=== PATIENT | male | born 1935 | race Caucasian/White ===

== ENCOUNTER 2018-11-08 12:13 | Inpatient (IN) | payer OTHER ==
[~2018-11-08] VITALS: Ht 182.9 cm; Wt 104.8 kg
[2018-11-08] MEDS ORDERED: METHYLPREDNISOLONE SOD SUCC 125 MG/2 ML VIAL IV STA (12:16)
[2018-11-08] MEDS ORDERED: IPRATROPIUM BROMIDE (0.02%) 0.5MG/2.5ML NEB HHN STA (12:16)
[2018-11-08] MEDS ORDERED: ALBUTEROL (0.083%) 2.5MG/3ML NEB HHN STA (12:16)
[2018-11-08] MEDS ORDERED: MAGNESIUM 2 G PREMIX 50 ML IV STA (12:16)
[2018-11-08] MEDS ORDERED: FUROSEMIDE 20MG/2ML VIAL IVP ONE (12:30)
[2018-11-08 12:54] LABS: CHLORIDE 112 mEq/L (98-107)
[2018-11-08 12:57] LABS: BASOPHILS % 1.6 % (0.0-2.0); EOSINOPHILS % 0.8 % (0.0-5.0); HEMATOCRIT. 36.1 % (42.0-52.0); HEMOGLOBIN. 11.9 g/dL (14.0-18.0); LYMPHOCYTES % 45.1 % (20.0-50.0); MEAN CORPUSCULAR HEMOGLOBIN 28.9 pg (28.0-32.0); MEAN CORPUSCULAR VOLUME 87.6 fL (80.0-94.0); MEAN PLATELET VOLUME 9.9 fl (7.4-10.4); MONOCYTES % 5.6 % (2.0-8.0); NEUTROPHILS % 46.9 % (40.0-76.0); PLATELET 219 x1000/uL (130-400); RED BLOOD CELL COUNT 4.12 mill/uL (4.7-6.1); RED CELL DISTRIBUTION WIDTH 17.9 % (11.6-14.6)
[2018-11-08 13:34] LABS: BG BASE EXCESS -7.2 mmol/L (-2.0-2.0); BG BILEVEL POS AIRWAY PRESSURE 15/5; BG CARBOXYHEMOGLOBIN 0.3 % (0.5-1.5); BG DEOXYHEMOGLOBIN 2.2 % (0.0-5.0); BG HCO3 ACT 18.3 mmol/L (22.0-26.0); BG METHEMOGLOBIN 0.4 % (0.0-1.5); BG OXYGEN SATURATION 97.8 % (92.0-98.5); BG OXYHEMOGLOBIN 97.1 % (94.0-97.0); BG PCO2 36.8 mmHg (35.0-45.0); BG PH 7.314 (7.350-7.450); BG PO2 129.5 mmHg (75.0-100.0); BG SAMPLE SITE RIGHT RADIAL; BG TOTAL HEMOGLOBIN 12.1 g/dL (12.0-18.0); BG VENT MODE MASK - BIPAP; BG VENT RATE 15 set
[2018-11-08] MEDS ORDERED: LEVOFLOXACIN 500MG PREMIX 100 ML IV ONE (14:15)
[2018-11-08 15:08] LABS: INR 2.9; PROTHROMBIN TIME 28.9 sec (9.6-11.0)
[2018-11-08 15:29] LABS: CLARITY URINE CLEAR (CLEAR); COLOR URINE YELLOW (YELLOW); KETONES URINE NEGATIVE (NEGATIVE); LEUKOCYTE ESTERASE URINE NEGATIVE (NEGATIVE); NITRITE URINE NEGATIVE (NEGATIVE); OCCULT BLOOD URINE 2+ (NEGATIVE); PROTEIN URINE 1+ (NEGATIVE); SPECIFIC GRAVITY URINE 1.008 (1.005-1.030); UROBILINOGEN URINE 0.2 E.U./dL (0.2-1.0)
[2018-11-08] MEDS ORDERED: IPRATROPIUM/ALBUTEROL 0.5-3(2.5)MG/3ML NEB HHN PRN (16:45)
[2018-11-08] MEDS ORDERED: GUAIFENESIN 200MG/10ML SUGAR FREE UDC PO PRN (18:30)
[2018-11-08] MEDS ORDERED: LEVOFLOXACIN 500MG PREMIX 100 ML IV SCH (18:30)
[2018-11-08] MEDS ORDERED: ONDANSETRON HCL 4MG/2ML INJ IV PRN (18:30)
[2018-11-08] MEDS ORDERED: CLONIDINE 0.1MG TABLET PO PRN (18:30)
[2018-11-08] MEDS ORDERED: LORAZEPAM 2MG/ML CPJ IV PRN (18:30)
[2018-11-08] MEDS ORDERED: MORPHINE SULFATE 2 MG/ML CPJ (NOT FOR IM USE) IV PRN (18:30)
[2018-11-08] MEDS ORDERED: MAGNESIUM/ALUMINUM HYDROXIDE/SIMETHICONE 30ML UDC PO PRN (18:30)
[2018-11-08] MEDS ORDERED: NA PHOS,M-B/NA PHOS,DI-BA ENEMA 118ML PR PRN (18:30)
[2018-11-08] MEDS ORDERED: HYDROCODONE/ACETAMINOPHEN 5/325MG TABLET PO PRN (18:30)
[2018-11-08] MEDS ORDERED: DOCUSATE SODIUM 100MG CAPSULE PO PRN (18:30)
[2018-11-08] MEDS ORDERED: ACETAMINOPHEN 325MG TABLET PO PRN (18:30)
[2018-11-08 19:01] VITALS: BP 173/73
[2018-11-08 20:00] VITALS: BP 146/63
[2018-11-08] MEDS: IPRATROPIUM/ALBUTEROL 0.5-3(2.5)MG/3ML NEB HHN SCH (20:14)
[2018-11-08] MEDS ORDERED: DILTIAZEM HCL 5MG/ML 5ML VIAL IV NR (20:45)
[2018-11-08] MEDS ORDERED: IPRATROPIUM BROMIDE (0.02%) 0.5MG/2.5ML NEB HHN PRN (20:45)
[2018-11-08 21:00] VITALS: BP 140/102
[2018-11-08] MEDS ORDERED: FUROSEMIDE 40MG/4ML VIAL IVP NR (21:20)
[2018-11-08 21:41] VITALS: BP 142/72
[2018-11-08 22:04] VITALS: BP 146/70
[2018-11-08] MEDS ORDERED: PNEUMOCOCCAL 23-VAL P-SAC VAC 0.5 ML IM ONE (22:45)
[2018-11-09] VITALS (12 sets, daily range): BP systolic 113–152; BP diastolic 49–87
[2018-11-09 00:23] LABS: CREATINE KINASE MB FRACTION 28.6 ng/mL (0.5-3.6)
[2018-11-09 07:26] LABS: HEMATOCRIT. 36.5 % (42.0-52.0); MEAN CORPUSCULAR HEMOGLOBIN 28.8 pg (28.0-32.0); MEAN CORPUSCULAR VOLUME 87.7 fL (80.0-94.0); MEAN PLATELET VOLUME 9.1 fl (7.4-10.4); PLATELET 188 x1000/uL (130-400); RED BLOOD CELL COUNT 4.16 mill/uL (4.7-6.1); RED CELL DISTRIBUTION WIDTH 17.8 % (11.6-14.6)
[2018-11-09 07:33] LABS: CHLORIDE 110 mEq/L (98-107)
[2018-11-09 07:45] LABS: CREATINE KINASE 544 IU/L (39-308); HDL CHOLESTEROL 59 mg/dL (40-59); LDL CHOLESTEROL 86 mg/dL (5-100)
[2018-11-09 07:49] LABS: CREATINE KINASE MB FRACTION 45.3 ng/mL (0.5-3.6)
[2018-11-09] MEDS ORDERED: DIGOXIN 500MCG/2ML AMP IV NR ×2 (08:30→09:44)
[2018-11-09 08:37] LABS: BG BASE EXCESS -7.2 mmol/L (-2.0-2.0); BG BILEVEL POS AIRWAY PRESSURE 15/5; BG CARBOXYHEMOGLOBIN 0.2 % (0.5-1.5); BG DEOXYHEMOGLOBIN 2.9 % (0.0-5.0); BG FRACTION INSPIRED OXYGEN 60; BG HCO3 ACT 17.1 mmol/L (22.0-26.0); BG METHEMOGLOBIN 0.3 % (0.0-1.5); BG OXYGEN SATURATION 97.1 % (92.0-98.5); BG OXYHEMOGLOBIN 96.6 % (94.0-97.0); BG PCO2 30.8 mmHg (35.0-45.0); BG PH 7.362 (7.350-7.450); BG PO2 96.6 mmHg (75.0-100.0); BG SAMPLE SITE RIGHT BRACHIAL; BG TOTAL HEMOGLOBIN 11.9 g/dL (12.0-18.0); BG VENT MODE MASK - BIPAP; BG VENT RATE 16 set
[2018-11-09] MEDS: ASPIRIN 81MG TABLET PO SCH (08:37)
[2018-11-09] MEDS: IPRATROPIUM/ALBUTEROL 0.5-3(2.5)MG/3ML NEB HHN SCH ×4 (08:56→20:17)
[2018-11-09] MEDS ORDERED: FUROSEMIDE 40MG/4ML VIAL IV SCH ×3 (09:00→13:00)
[2018-11-09 09:10] LABS: INR 3.6; PROTHROMBIN TIME 35.5 sec (9.6-11.0)
[2018-11-09 10:26] LABS: T4 FREE 1.06 ng/dL (0.76-1.46)
[2018-11-09] MEDS: CLINDAMYCIN 600MG PREMIX 50 ML IV SCH ×2 (12:14→22:35)
[2018-11-09] MEDS ORDERED: LIDOCAINE HCL 1% 20ML VIAL (Pyxis) INJ ONE (14:37)
[2018-11-09] MEDS ORDERED: FENTANYL CITRATE/PF 50MCG/ML 2ML VIAL ONE (14:38)
[2018-11-09] MEDS ORDERED: MIDAZOLAM HCL 2 MG/2 ML VIAL ONE (14:38)
[2018-11-09] MEDS ORDERED: IODIXANOL 320MG/ML 100 ML BOTTLE IV ONE ×2 (14:39→15:04)
[2018-11-09 14:50] LABS: CREATINE KINASE MB FRACTION 35.8 ng/mL (0.5-3.6)
[2018-11-09] MEDS ORDERED: IOHEXOL-300 100 ML BOTTLE ONE (14:57)
[2018-11-09] MEDS ORDERED: LEVOFLOXACIN 250MG PREMIX 50 ML IV SCH (15:00)
[2018-11-09] MEDS ORDERED: HEPARIN SODIUM 1,000 UNIT/1ML VIAL IV ONE ×2 (15:00→15:16)
[2018-11-09] MEDS ORDERED: NICARDIPINE 100MCG/ML 10ML VIAL (CATH LAB) IV ONE (15:16)
[2018-11-09] MEDS ORDERED: NITROGLYCERIN 50MCG/ML 10ML VIAL (CATH LAB) IV ONE (15:16)
[2018-11-09] MEDS ORDERED: ADENOSINE 3 MG/ML 2ML VIAL IV ONE (15:24)
[2018-11-09] MEDS ORDERED: ATROPINE SULFATE 1MG/10ML SYR IV PRN (16:00)
[2018-11-09] MEDS ORDERED: MORPHINE SULFATE 2 MG/ML CPJ (NOT FOR IM USE) IV PRN (16:00)
[2018-11-09] MEDS ORDERED: ACETAMINOPHEN 325MG TABLET PO PRN (16:00)
[2018-11-09] MEDS ORDERED: ASPIRIN 325MG TABLET ONE (16:03)
[2018-11-09] MEDS ORDERED: CLOPIDOGREL 75MG TABLET ONE (16:03)
[2018-11-09] MEDS ORDERED: METOLAZONE 2.5MG TABLET PO SCH (17:00)
[2018-11-09 19:59] LABS: PLATELET ESTIMATE NORMAL
[2018-11-10] VITALS (13 sets, daily range): BP systolic 111–139; BP diastolic 56–80
[2018-11-10] MEDS: IPRATROPIUM/ALBUTEROL 0.5-3(2.5)MG/3ML NEB HHN SCH ×4 (01:26→20:26)
[2018-11-10] MEDS: CLINDAMYCIN 600MG PREMIX 50 ML IV SCH ×3 (03:17→17:09)
[2018-11-10 07:22] LABS: BASOPHILS % 0.5 % (0.0-2.0); EOSINOPHILS % 0.1 % (0.0-5.0); HEMATOCRIT. 26.8 % (42.0-52.0); HEMOGLOBIN. 8.9 g/dL (14.0-18.0); LYMPHOCYTES % 8.2 % (20.0-50.0); MEAN CORPUSCULAR HEMOGLOBIN 28.5 pg (28.0-32.0); MEAN CORPUSCULAR VOLUME 86.3 fL (80.0-94.0); MONOCYTES % 7.6 % (2.0-8.0); NEUTROPHILS % 83.6 % (40.0-76.0); PLATELET 135 x1000/uL (130-400); RED CELL DISTRIBUTION WIDTH 17.4 % (11.6-14.6)
[2018-11-10 07:48] LABS: BG BASE EXCESS -2.7 mmol/L (-2.0-2.0); BG CARBOXYHEMOGLOBIN 0.5 % (0.5-1.5); BG DEOXYHEMOGLOBIN 5.9 % (0.0-5.0); BG HCO3 ACT 21.5 mmol/L (22.0-26.0); BG OXYGEN SATURATION 94.1 % (92.0-98.5); BG OXYHEMOGLOBIN 93.6 % (94.0-97.0); BG PCO2 34.9 mmHg (35.0-45.0); BG PH 7.408 (7.350-7.450); BG PO2 75.8 mmHg (75.0-100.0); BG SAMPLE SITE RIGHT BRACHIAL; BG VENT MODE NASAL CANNULA
[2018-11-10 08:07] LABS: CHLORIDE 111 mEq/L (98-107)
[2018-11-10 08:14] LABS: PHOSPHORUS 3.4 mg/dL (2.5-4.9)
[2018-11-10] MEDS ORDERED: DEXTROSE 50% WATER 50ML SYRINGE IV PRN (08:15)
[2018-11-10 08:16] LABS: CREATINE KINASE 395 IU/L (39-308)
[2018-11-10 08:19] LABS: CREATINE KINASE MB FRACTION 15.1 ng/mL (0.5-3.6)
[2018-11-10] MEDS: INSULIN LISPRO 100 UNITS/ML SUBCUT SCH ×4 (09:19→21:10)
[2018-11-10] MEDS: CLOPIDOGREL 75MG TABLET PO SCH (09:28)
[2018-11-10] MEDS: CARVEDILOL 3.125 MG TABLET PO SCH (09:29)
[2018-11-10] MEDS: ASPIRIN 81MG TABLET PO SCH (09:29)
[2018-11-10] MEDS: AMLODIPINE 10MG TABLET PO SCH (09:29)
[2018-11-10] MEDS: SODIUM CHLORIDE 0.45% 1,000 ML IV SCH (09:30)
[2018-11-10] MEDS: FUROSEMIDE 40MG TABLET PO SCH (09:37)
[2018-11-10] MEDS ORDERED: INSULIN LISPRO 100 UNITS/ML SUBCUT SCH (12:20)
[2018-11-10] MEDS ORDERED: WARF2.5T83 MT (12:26)
[2018-11-10] MEDS ORDERED: HYDRALAZINE PO (12:26)
[2018-11-10] MEDS ORDERED: LISI40TA4 MT (12:26)
[2018-11-10] MEDS ORDERED: KLOR-CON PO (12:26)
[2018-11-10] MEDS ORDERED: INSULIN SQ (12:26)
[2018-11-10] MEDS ORDERED: ATOR-2 MT (12:26)
[2018-11-10] MEDS: BLOOD SUGAR DIAGNOSTIC STRIP TEST SCH ×3 (12:31→21:00)
[2018-11-10 12:49] LABS: CLARITY URINE CLEAR (CLEAR); COLOR URINE YELLOW (YELLOW); KETONES URINE NEGATIVE (NEGATIVE); LEUKOCYTE ESTERASE URINE NEGATIVE (NEGATIVE); NITRITE URINE NEGATIVE (NEGATIVE); OCCULT BLOOD URINE NEGATIVE (NEGATIVE); PROTEIN URINE NEGATIVE (NEGATIVE); SPECIFIC GRAVITY URINE 1.026 (1.005-1.030); UROBILINOGEN URINE 0.2 E.U./dL (0.2-1.0)
[2018-11-10 13:10] LABS: SODIUM URINE RANDOM 66 mEq/L
[2018-11-10 16:17] LABS: HEMATOCRIT 28.2 % (42.0-52.0); HEMOGLOBIN 9.2 g/dL (14.0-18.0); MEAN CORPUSCULAR HEMOGLOBIN 28.6 pg (28.0-32.0); MEAN CORPUSCULAR VOLUME 87.7 fL (80.0-94.0); PLATELET 130 x1000/uL (130-400); RED BLOOD CELL COUNT 3.22 mill/uL (4.7-6.1)
[2018-11-10 16:29] LABS: PROTHROMBIN TIME 46.3 sec (9.6-11.0)
[2018-11-10 17:11] LABS: INR 4.8
[2018-11-10] MEDS ORDERED: PHYTONADIONE 10MG/ML AMP SUBCUT NR (18:13)
[2018-11-10] MEDS: ATORVASTATIN CALCIUM 40MG TABLET PO SCH (21:09)
[2018-11-11] VITALS (12 sets, daily range): BP systolic 105–148; BP diastolic 51–90
[2018-11-11] MEDS: CLINDAMYCIN 600MG PREMIX 50 ML IV SCH ×3 (01:16→19:02)
[2018-11-11] MEDS: IPRATROPIUM/ALBUTEROL 0.5-3(2.5)MG/3ML NEB HHN SCH ×4 (02:18→21:03)
[2018-11-11] MEDS: SODIUM CHLORIDE 0.45% 1,000 ML IV SCH (06:04)
[2018-11-11 06:07] LABS: BASOPHILS % 0.4 % (0.0-2.0); EOSINOPHILS % 0.6 % (0.0-5.0); HEMATOCRIT. 25.7 % (42.0-52.0); HEMOGLOBIN. 8.7 g/dL (14.0-18.0); LYMPHOCYTES % 9.3 % (20.0-50.0); MEAN CORPUSCULAR HEMOGLOBIN 29.3 pg (28.0-32.0); MEAN CORPUSCULAR VOLUME 86.7 fL (80.0-94.0); MEAN PLATELET VOLUME 9.3 fl (7.4-10.4); MONOCYTES % 7.8 % (2.0-8.0); NEUTROPHILS % 81.9 % (40.0-76.0); PLATELET 139 x1000/uL (130-400); RED BLOOD CELL COUNT 2.96 mill/uL (4.7-6.1); RED CELL DISTRIBUTION WIDTH 17.2 % (11.6-14.6)
[2018-11-11 06:41] LABS: PHOSPHORUS 3.4 mg/dL (2.5-4.9)
[2018-11-11] MEDS: BLOOD SUGAR DIAGNOSTIC STRIP TEST SCH ×4 (06:50→21:00)
[2018-11-11] MEDS ORDERED: SODIUM CHLORIDE 0.9% 1,000 ML IV SCH (09:00)
[2018-11-11] MEDS: FUROSEMIDE 40MG TABLET PO SCH (09:11)
[2018-11-11] MEDS: CARVEDILOL 3.125 MG TABLET PO SCH (09:11)
[2018-11-11] MEDS: ASPIRIN 81MG TABLET PO SCH (09:11)
[2018-11-11] MEDS: AMLODIPINE 10MG TABLET PO SCH (09:11)
[2018-11-11] MEDS: CLOPIDOGREL 75MG TABLET PO SCH (09:11)
[2018-11-11] MEDS: INSULIN LISPRO 100 UNITS/ML SUBCUT SCH ×4 (09:56→23:04)
[2018-11-11 12:06] LABS: HEMATOCRIT. 24.8 % (42.0-52.0); HEMOGLOBIN. 8.2 g/dL (14.0-18.0); MEAN CORPUSCULAR HEMOGLOBIN 28.6 pg (28.0-32.0); MEAN CORPUSCULAR VOLUME 86.3 fL (80.0-94.0); PLATELET 131 x1000/uL (130-400); RED BLOOD CELL COUNT 2.87 mill/uL (4.7-6.1); RED CELL DISTRIBUTION WIDTH 17.6 % (11.6-14.6)
[2018-11-11 12:13] LABS: CHLORIDE 109 mEq/L (98-107); PROTHROMBIN TIME 29.4 sec (9.6-11.0)
[2018-11-11 12:22] LABS: PHOSPHORUS 3.9 mg/dL (2.5-4.9)
[2018-11-11 13:21] LABS: PLATELET ESTIMATE NORMAL
[2018-11-11 19:14] LABS: SODIUM URINE RANDOM 75 mEq/L
[2018-11-11] MEDS: ATORVASTATIN CALCIUM 40MG TABLET PO SCH (22:16)
[2018-11-12] VITALS (11 sets, daily range): BP systolic 104–135; BP diastolic 56–86
[2018-11-12] MEDS: IPRATROPIUM/ALBUTEROL 0.5-3(2.5)MG/3ML NEB HHN SCH ×3 (01:00→14:02)
[2018-11-12] MEDS: BLOOD SUGAR DIAGNOSTIC STRIP TEST SCH ×3 (06:27→16:07)
[2018-11-12] MEDS: CLINDAMYCIN 600MG PREMIX 50 ML IV SCH ×3 (06:32→17:14)
[2018-11-12] MEDS: INSULIN LISPRO 100 UNITS/ML SUBCUT SCH ×3 (11:11→17:14)
[2018-11-12] MEDS: CLOPIDOGREL 75MG TABLET PO SCH (11:11)
[2018-11-12] MEDS: CARVEDILOL 3.125 MG TABLET PO SCH (11:11)
[2018-11-12] MEDS: FUROSEMIDE 40MG TABLET PO SCH (11:12)
[2018-11-12] MEDS: AMLODIPINE 10MG TABLET PO SCH (11:12)
[2018-11-12] MEDS: ASPIRIN 81MG TABLET PO SCH (11:12)
[2018-11-12 12:39] LABS: BASOPHILS % 0.5 % (0.0-2.0); EOSINOPHILS % 1.5 % (0.0-5.0); HEMATOCRIT. 24.7 % (42.0-52.0); HEMOGLOBIN. 8.3 g/dL (14.0-18.0); LYMPHOCYTES % 7.7 % (20.0-50.0); MEAN CORPUSCULAR HEMOGLOBIN 29.4 pg (28.0-32.0); MEAN CORPUSCULAR VOLUME 87.2 fL (80.0-94.0); MEAN PLATELET VOLUME 9.1 fl (7.4-10.4); MONOCYTES % 8.7 % (2.0-8.0); NEUTROPHILS % 81.6 % (40.0-76.0); PLATELET 144 x1000/uL (130-400); RED BLOOD CELL COUNT 2.84 mill/uL (4.7-6.1); RED CELL DISTRIBUTION WIDTH 16.9 % (11.6-14.6)
[2018-11-12 12:47] LABS: INR 1.6; PROTHROMBIN TIME 16.4 sec (9.6-11.0)
[2018-11-15 10:11] LABS: MICROALBUMIN 24 HR URINE 54.1 mg/day (<30.0); MICROALBUMIN URINE 63.7 ug/mL (Not Estab.)
== END 2018-11-12 20:00 | disposition short-term general hospital (02) | DRG 246 ==
LOC: ER 14:02 → 5EST 14:58 → EDBEDREQ 15:03 → EDBEDREQTM 15:03 → ENRESERV 17:53 → 3WST 11-09 16:45
PROVIDERS: ADMIT Hospitalist; ATTEND Hospitalist
PROC: 5A09357 Assistance with Respiratory Ventilation, Less than 24 Consecutive Hours, Continuous Positive Airway Pressure (ICD-10-PCS; 2018-11-08)
PROC: 027034Z Dilation of Coronary Artery, One Artery with Drug-eluting Intraluminal Device, Percutaneous Approach (ICD-10-PCS; principal; 2018-11-09)
PROC: X2C0361 Extirpation of Matter from Coronary Artery, One Artery using Orbital Atherectomy Technology, Percutaneous Approach, New Technology Group 1 (ICD-10-PCS; 2018-11-09)
PROC: 4A023N7 Measurement of Cardiac Sampling and Pressure, Left Heart, Percutaneous Approach (ICD-10-PCS; 2018-11-09)
PROC: B2111ZZ Fluoroscopy of Multiple Coronary Arteries using Low Osmolar Contrast (ICD-10-PCS; 2018-11-09)
PROC: B2151ZZ Fluoroscopy of Left Heart using Low Osmolar Contrast (ICD-10-PCS; 2018-11-09)
PROC: 5A09357 Assistance with Respiratory Ventilation, Less than 24 Consecutive Hours, Continuous Positive Airway Pressure (ICD-10-PCS; 2018-11-09)
DX: I21.3 ST elevation (STEMI) myocardial infarction of unspecified site (principal); I50.43 Acute on chronic combined systolic (congestive) and diastolic (congestive) heart failure; J96.01 Acute respiratory failure with hypoxia; N17.0 Acute kidney failure with tubular necrosis; E87.2 Acidosis; I13.0 Hypertensive heart and chronic kidney disease with heart failure and stage 1 through stage 4 chronic kidney disease, or unspecified chronic kidney disease; D68.9 Coagulation defect, unspecified; N39.0 Urinary tract infection, site not specified; N18.9 Chronic kidney disease, unspecified; I48.0 Paroxysmal atrial fibrillation; E11.22 Type 2 diabetes mellitus with diabetic chronic kidney disease; E78.5 Hyperlipidemia, unspecified; J44.9 Chronic obstructive pulmonary disease, unspecified; I25.110 Atherosclerotic heart disease of native coronary artery with unstable angina pectoris; D64.9 Anemia, unspecified; I25.5 Ischemic cardiomyopathy; B95.5 Unspecified streptococcus as the cause of diseases classified elsewhere; Z88.0 Allergy status to penicillin; Z87.891 Personal history of nicotine dependence; Z79.01 Long term (current) use of anticoagulants; Z88.8 Allergy status to other drugs, medicaments and biological substances
CPT/HCPCS: 36415; 36600; 71045; 76770; 80048; 80061; 82043; 82375; 82550; 82553; 82805; 82962; 83036; 83605; 83735; 83880; 83935; 84100; 84145; 84156; 84300; 84439; 84443; 84484; 85027; 85347; 85379; 87077; 87186; 90732; 92933; 93005; 93306; 93458; 93970; 94640; 94660; 96361; 96365; 96367; 97161; 99291; C1725; C1769; C1874; C1887; C1893; J0153; J1160; J1644; J1815; J1940; J1956; J2060; J2250; J2930; J3010; J3430; J3475; J3490; J7611; J7620; Q9967

== ENCOUNTER 2019-06-21 10:23 | Inpatient (IN) | payer OTHER ==
[~2019-06-21] VITALS: Ht 172.7 cm; Wt 99.8 kg
[~2019-06-21 10:23] MED LIST: ATOR-2 MT; HYDRALAZINE PO; INSULIN SQ; KLOR-CON PO; LISI40TA4 MT; WARF2.5T83 MT
[2019-06-21] MEDS ORDERED: IPRATROPIUM BROMIDE (0.02%) 0.5MG/2.5ML NEB HHN STA (10:29)
[2019-06-21] MEDS ORDERED: METHYLPREDNISOLONE SOD SUCC 125 MG/2 ML VIAL IV STA (10:29)
[2019-06-21] MEDS ORDERED: ALBUTEROL (0.083%) 2.5MG/3ML NEB HHN STA (10:29)
[2019-06-21 10:53] LABS: EOSINOPHILS % 1.3 % (0.0-5.0); HEMATOCRIT. 32.5 % (42.0-52.0); HEMOGLOBIN. 10.6 g/dL (14.0-18.0); LYMPHOCYTES % 18.7 % (20.0-50.0); MEAN CORPUSCULAR HEMOGLOBIN 28.7 pg (28.0-32.0); MEAN CORPUSCULAR VOLUME 87.7 fL (80.0-94.0); MEAN PLATELET VOLUME 9.3 fl (7.4-10.4); PLATELET 145 x1000/uL (130-400); RED CELL DISTRIBUTION WIDTH 18.9 % (11.6-14.6)
[2019-06-21 10:54] LABS: CHLORIDE 108 mEq/L (98-107)
[2019-06-21 10:55] LABS: INR 2.4; PROTHROMBIN TIME 25.9 sec (9.6-11.0)
[2019-06-21 11:11] LABS: T4 FREE 1.23 ng/dL (0.76-1.46)
[2019-06-21] MEDS ORDERED: FUROSEMIDE 40MG/4ML VIAL IVP ONE (11:15)
[2019-06-21] MEDS ORDERED: NITROGLYCERIN OINT 1GM/INCH UDPKT TD ONE (11:15)
[2019-06-21 11:23] LABS: BG BASE EXCESS -2.9 mmol/L (-2.0-2.0); BG BILEVEL POS AIRWAY PRESSURE 15/5; BG CARBOXYHEMOGLOBIN 0.3 % (0.5-1.5); BG DEOXYHEMOGLOBIN 0.8 % (0.0-5.0); BG FRACTION INSPIRED OXYGEN 40; BG METHEMOGLOBIN 0.2 % (0.0-1.5); BG OXYGEN SATURATION 99.2 % (92.0-98.5); BG OXYHEMOGLOBIN 98.7 % (94.0-97.0); BG PCO2 38.6 mmHg (35.0-45.0); BG PH 7.374 (7.350-7.450); BG PO2 248.3 mmHg (75.0-100.0); BG SAMPLE SITE RIGHT BRACHIAL; BG TOTAL HEMOGLOBIN 10.5 g/dL (12.0-18.0); BG VENT MODE MASK - BIPAP; BG VENT RATE 14 set
[2019-06-21 12:53] LABS: CLARITY URINE CLEAR (CLEAR); COLOR URINE YELLOW (YELLOW); KETONES URINE NEGATIVE (NEGATIVE); LEUKOCYTE ESTERASE URINE NEGATIVE (NEGATIVE); NITRITE URINE NEGATIVE (NEGATIVE); OCCULT BLOOD URINE NEGATIVE (NEGATIVE); PROTEIN URINE 2+ (NEGATIVE); UROBILINOGEN URINE 0.2 E.U./dL (0.2-1.0)
[2019-06-21] MEDS ORDERED: AMLODIPINE 5MG TABLET PO NR (13:30)
[2019-06-21] MEDS ORDERED: ONDANSETRON HCL 4MG/2ML INJ IV PRN (14:00)
[2019-06-21] MEDS ORDERED: MAGNESIUM/ALUMINUM HYDROXIDE/SIMETHICONE 30ML UDC PO PRN (14:00)
[2019-06-21] MEDS ORDERED: IPRATROPIUM/ALBUTEROL 0.5-3(2.5)MG/3ML NEB NEB PRN (14:00)
[2019-06-21] MEDS ORDERED: DEXTROSE 50% WATER 50ML SYRINGE IV PRN (14:00)
[2019-06-21] MEDS ORDERED: NITROGLYCERIN 0.4MG TABLET SL SL PRN (14:00)
[2019-06-21] MEDS ORDERED: ACETAMINOPHEN 325MG TABLET PO PRN (14:00)
[2019-06-21] MEDS ORDERED: CLONIDINE 0.1MG TABLET PO PRN (14:00)
[2019-06-21] MEDS ORDERED: ZOLPIDEM TARTRATE 5MG TABLET PO PRN (14:00)
[2019-06-21] MEDS ORDERED: LORAZEPAM 0.5MG TABLET PO PRN (14:00)
[2019-06-21] MEDS ORDERED: METOLAZONE 10MG TABLET PO NR (14:00)
[2019-06-21] MEDS ORDERED: DOCUSATE SODIUM 100MG CAPSULE PO PRN (14:00)
[2019-06-21] MEDS ORDERED: TRAMADOL 50MG TABLET PO PRN (14:00)
[2019-06-21] MEDS ORDERED: GUAIFENESIN 200MG/10ML SUGAR FREE UDC PO PRN (14:00)
[2019-06-21 18:25] LABS: CREATINE KINASE MB FRACTION 2.2 ng/mL (0.5-3.6)
[2019-06-21] MEDS: BLOOD SUGAR DIAGNOSTIC STRIP TEST SCH (19:56)
[2019-06-21] MEDS: INSULIN LISPRO 100 UNITS/ML SUBCUT SCH (19:57)
[2019-06-21] MEDS: FUROSEMIDE 40MG/4ML VIAL IVP SCH (21:26)
[2019-06-21] MEDS ORDERED: INSULIN GLARGINE UD 100 UNITS/ML SYR SUBCUT SCH (22:00)
[2019-06-22] VITALS (38 sets, daily range): BP systolic 94–194; BP diastolic 43–151
[2019-06-22] MEDS ORDERED: HYDRALAZINE HCL 50MG TABLET PO SCH (06:00)
[2019-06-22] MEDS: NITROGLYCERIN OINT 1GM/INCH UDPKT TD SCH ×3 (06:03→22:00)
[2019-06-22] MEDS: FUROSEMIDE 40MG/4ML VIAL IVP SCH ×2 (06:03→17:19)
[2019-06-22] MEDS: BLOOD SUGAR DIAGNOSTIC STRIP TEST SCH ×4 (06:06→21:00)
[2019-06-22 06:07] LABS: HEMATOCRIT. 29.7 % (42.0-52.0); HEMOGLOBIN. 9.9 g/dL (14.0-18.0); MEAN CORPUSCULAR HEMOGLOBIN 28.8 pg (28.0-32.0); MEAN CORPUSCULAR VOLUME 86.7 fL (80.0-94.0); MEAN PLATELET VOLUME 9.7 fl (7.4-10.4); PLATELET 124 x1000/uL (130-400); RED BLOOD CELL COUNT 3.43 mill/uL (4.7-6.1); RED CELL DISTRIBUTION WIDTH 18.7 % (11.6-14.6)
[2019-06-22 06:20] LABS: CREATINE KINASE MB FRACTION 2.1 ng/mL (0.5-3.6)
[2019-06-22] MEDS: INSULIN LISPRO 100 UNITS/ML SUBCUT SCH ×4 (06:24→21:32)
[2019-06-22] MEDS ORDERED: FUROSEMIDE 40MG/4ML VIAL IVP SCH (09:00)
[2019-06-22] MEDS ORDERED: AMLODIPINE 5MG TABLET PO SCH (09:00)
[2019-06-22] MEDS: LISINOPRIL 10MG TABLET PO SCH ×2 (09:07→21:30)
[2019-06-22] MEDS: SPIRONOLACTONE 25MG TABLET PO SCH ×2 (09:08→21:30)
[2019-06-22] MEDS: FAMOTIDINE 20MG TABLET PO SCH (09:08)
[2019-06-22] MEDS: ASPIRIN 325MG EC TABLET PO SCH (09:08)
[2019-06-22 09:51] LABS: INR 2.9; PROTHROMBIN TIME 30.3 sec (9.6-11.0)
[2019-06-22 10:40] LABS: PLATELET ESTIMATE NORMAL
[2019-06-22 12:36] LABS: *BARBITURATES SCREEN URINE NEGATIVE (NEGATIVE); *BENZODIAZEPINES SCREEN URINE NEGATIVE (NEGATIVE); *COCAINE SCREEN URINE NEGATIVE (NEGATIVE)
[2019-06-22 12:37] LABS: CANNABINOID URINE SCREEN NEGATIVE (NEGATIVE); METHADONE URINE SCREEN NEGATIVE (NEGATIVE); OPIATES URINE SCREEN NEGATIVE (NEGATIVE); PHENCYCLIDINE URINE SCREEN NEGATIVE (NEGATIVE)
[2019-06-22 12:45] LABS: *AMPHETAMINES SCREEN URINE NEGATIVE (NEGATIVE)
[2019-06-22] MEDS: HYDRALAZINE HCL 100MG TABLET PO SCH ×2 (13:17→21:44)
[2019-06-22] MEDS: LEVOTHYROXINE SODIUM 50MCG TABLET PO SCH (13:32)
[2019-06-22] MEDS ORDERED: ATROPINE SULFATE 1MG/ML VIAL IV PRN (16:00)
[2019-06-22] MEDS ORDERED: INSULIN GLARGINE UD 100 UNITS/ML SYR SUBCUT SCH (22:00)
[2019-06-22] MEDS ORDERED: HYDRALAZINE 20MG/ML VIAL IV PRN (23:15)
[2019-06-22] MEDS ORDERED: HYDRALAZINE HCL 10MG TABLET PO NR (23:15)
[2019-06-23] VITALS (26 sets, daily range): BP systolic 126–174; BP diastolic 50–85
[2019-06-23 05:24] LABS: BASOPHILS % 0.5 % (0.0-2.0); EOSINOPHILS % 0.2 % (0.0-5.0); HEMATOCRIT. 30.4 % (42.0-52.0); HEMOGLOBIN. 10.2 g/dL (14.0-18.0); LYMPHOCYTES % 13.4 % (20.0-50.0); MEAN CORPUSCULAR HEMOGLOBIN 28.9 pg (28.0-32.0); MEAN CORPUSCULAR VOLUME 86.3 fL (80.0-94.0); MEAN PLATELET VOLUME 9.4 fl (7.4-10.4); MONOCYTES % 9.1 % (2.0-8.0); NEUTROPHILS % 76.8 % (40.0-76.0); PLATELET 131 x1000/uL (130-400); RED BLOOD CELL COUNT 3.52 mill/uL (4.7-6.1)
[2019-06-23 05:34] LABS: INR 3.3; PROTHROMBIN TIME 34.4 sec (9.6-11.0)
[2019-06-23] MEDS: FUROSEMIDE 40MG/4ML VIAL IVP SCH ×2 (06:10→17:38)
[2019-06-23] MEDS: HYDRALAZINE HCL 100MG TABLET PO SCH ×2 (06:11→14:16)
[2019-06-23] MEDS: LEVOTHYROXINE SODIUM 50MCG TABLET PO SCH (06:11)
[2019-06-23] MEDS: NITROGLYCERIN OINT 1GM/INCH UDPKT TD SCH ×2 (06:11→14:17)
[2019-06-23] MEDS: BLOOD SUGAR DIAGNOSTIC STRIP TEST SCH ×3 (06:11→16:47)
[2019-06-23] MEDS: INSULIN LISPRO 100 UNITS/ML SUBCUT SCH ×3 (06:12→16:47)
[2019-06-23] MEDS ORDERED: TERAZOSIN HCL 5MG CAPSULE PO SCH (09:00)
[2019-06-23] MEDS: ASPIRIN 325MG EC TABLET PO SCH (09:13)
[2019-06-23] MEDS: SPIRONOLACTONE 25MG TABLET PO SCH (09:14)
[2019-06-23] MEDS: LISINOPRIL 10MG TABLET PO SCH (09:14)
[2019-06-23] MEDS: FAMOTIDINE 20MG TABLET PO SCH (09:14)
== END 2019-06-23 21:00 | disposition short-term general hospital (02) | DRG 280 ==
LOC: ER 10:36 → MICUSO 11:53 → EDBEDREQ 12:03 → EDBEDREQSVC 18:39 → ENRESERV 06-22 02:39
PROVIDERS: ADMIT Internal Medicine; ATTEND Internal Medicine
PROC: 5A09357 Assistance with Respiratory Ventilation, Less than 24 Consecutive Hours, Continuous Positive Airway Pressure (ICD-10-PCS; principal; 2019-06-21)
DX: I21.4 Non-ST elevation (NSTEMI) myocardial infarction (principal); I50.43 Acute on chronic combined systolic (congestive) and diastolic (congestive) heart failure; N17.0 Acute kidney failure with tubular necrosis; J96.00 Acute respiratory failure, unspecified whether with hypoxia or hypercapnia; I48.20 Chronic atrial fibrillation, unspecified; I13.0 Hypertensive heart and chronic kidney disease with heart failure and stage 1 through stage 4 chronic kidney disease, or unspecified chronic kidney disease; D68.9 Coagulation defect, unspecified; N18.9 Chronic kidney disease, unspecified; I25.5 Ischemic cardiomyopathy; E78.5 Hyperlipidemia, unspecified; E11.22 Type 2 diabetes mellitus with diabetic chronic kidney disease; I35.0 Nonrheumatic aortic (valve) stenosis; E03.9 Hypothyroidism, unspecified; D63.8 Anemia in other chronic diseases classified elsewhere; E66.09 Other obesity due to excess calories; E78.00 Pure hypercholesterolemia, unspecified; I25.10 Atherosclerotic heart disease of native coronary artery without angina pectoris; K21.9 Gastro-esophageal reflux disease without esophagitis; N40.0 Benign prostatic hyperplasia without lower urinary tract symptoms; Z79.01 Long term (current) use of anticoagulants; Z79.4 Long term (current) use of insulin; Z79.899 Other long term (current) drug therapy; Z82.3 Family history of stroke; Z82.49 Family history of ischemic heart disease and other diseases of the circulatory system; Z86.711 Personal history of pulmonary embolism; Z87.891 Personal history of nicotine dependence; Z95.5 Presence of coronary angioplasty implant and graft; Z99.81 Dependence on supplemental oxygen; Z88.0 Allergy status to penicillin; Z68.33 Body mass index [BMI] 33.0-33.9, adult
CPT/HCPCS: 36415; 36600; 71045; 76770; 80048; 80053; 80061; 80305; 81003; 82375; 82550; 82553; 82607; 82746; 82805; 82962; 83036; 83540; 83550; 83605; 83735; 83880; 84145; 84439; 84443; 84484; 85025; 93005; 93306; 93970; 94644; 94660; 99291; J1815; J1940; J2930